=== PATIENT | male | born 1945 | race Caucasian/White ===

== ENCOUNTER 2017-09-23 17:57 | Inpatient (IN) ==
[2017-09-24 06:58] LABS: Basophils # 0.1 K/mcL (0.0-0.2); Basophils % 0.7 %; Eosinophils # 0.4 K/mcL (0.0-0.6); Eosinophils % 3.1 %; Hematocrit 43.8 % (37.5-50.1); Hemoglobin 14.5 g/dL (12.9-16.9); Immature Granulocytes % 1.7 % (0-4); Lymphocytes # 1.6 K/mcL (0.6-4.6); Mean Corpuscular HGB Conc 33.1 g/dL (31.6-35.5); Mean Corpuscular Volume 84.7 fL (83.0-100.0); Mean Platelet Volume 10.9 fL (9.4-12.4); Monocytes % 7.3 %; Neutrophils # 10.1 K/mcL (1.6-8.9); Platelet Count 377 K/mcL (140-400); Red Blood Count 5.17 M/mcL (4.19-5.50); Red Cell Distribution Width 13.2 % (11.5-14.5); Segmented Neutrophils % 75.2 %
[2017-09-24 07:04] LABS: INR 1.2; Prothrombin Time 12.8 Seconds (9.4-12.1)
[2017-09-24 07:06] LABS: Activated Partial Thrombo Time 27.5 Seconds (26.0-36.0)
[2017-09-24 07:13] LABS: Calcium 10.8 mg/dL (8.6-10.8); Potassium 4.2 mEq/L (3.5-4.5)
[2017-09-24] MEDS: Multivit/Ca/Min/Fe/FA 1 TAB TABLET PO SCH (08:43)
[2017-09-24] MEDS: Cholecalciferol (D-3) 1,000 UNIT TABLET PO SCH (08:43)
[2017-09-24] MEDS: Metoprolol XL (24 HR) Succ 50 MG TAB.ER.24H PO SCH (08:43)
[2017-09-24] MEDS: Aspirin Enteric Coated 81 MG Tablet PO SCH (08:43)
[2017-09-24] MEDS: amLODIPine 5 MG TABLET PO SCH (08:43)
[2017-09-24] MEDS: Bicalutamide 50 MG TABLET PO SCH (08:45)
--- NOTE | 2017-09-24 16:42 | Internal Med History&Physical ---
Date of Encounter: 09/24/17 Time of Encounter: 15:10 Assessment and Plan (1) Parietal lobe infarction Current visit: No Status: Acute Continue aspirin and Plavix with PT/OT intervention. (2) Bilateral hydronephrosis Current visit: No Status: Acute Continue nephrostomy tubes. Will monitor renal indices. (3) Atrial fibrillation Current visit: No Status: Chronic Continue aspirin and Plavix and withhold OAC. Qualifiers: Atrial fibrillation type: chronic Qualified Code(s): I48.2 - Chronic atrial fibrillation (4) DVT (deep venous thrombosis) Current visit: No Status: Acute Continue aspirin and Plavix. Qualifiers: DVT location: lower extremity Affected thrombotic vein of extremity: tibial Chronicity: acute Laterality: right Qualified Code(s): I82.441 - Acute embolism and thrombosis of right tibial vein (5) REBEL (acute kidney injury) Current visit: No Status: Acute Chronicity uncertain. Will monitor renal indices. Internal Medicine - H&P: HPI Chief complaint: Stroke, renal failure Admitted From: Hospital to Hospital Transfer Plans for Post Hospital Care: Home History of present illness: Mr. Hunt is a 71 year old male who was transferred to [facility] swing bed after hospitalization at [facility] September 09-September 23. He presented with acute neurologic deficit with vision loss. He was found to have a right parietal infarct and was given aspirin and Plavix. He developed acute renal failure with initial creatinine 11.86 which was increased from 3.69 on 09/01/2017. He reports no previous history of chronic kidney disease. He was found to have obstructive uropathy and had bilateral nephrostomy tubes placed by urology. He had several treatments of hemodialysis but his creatinine improved and he did not have dialysis for several days prior to coming to [facility] swing bed. He developed a right tibial DVT. Consideration for OAC was done but not started because of recent hematuria. He was admitted for rehabilitation therapy prior to returning to independent living. His neurologic history is pertinent for previous CVA April 2016. He denies seizures. Bilateral carotid Doppler studies showed at least 70% stenosis bilaterally but vascular surgery did not feel he was a surgical candidate at this time. Past Med Surg Social Fam HX - Past Medical History Medical history: atrial fibrillation, cancer, GI bleed, hypertension Psychiatric history: no psych history - Past Surgical History Surgical History: other, pacemaker - Social History Smoking Status: Former smoker Smokeless Tobacco Status: No Alcohol use: none Drug use: none Internal Medicine - H&P: Meds Atorvastatin Calcium [Lipitor] 20 mg PO HS 09/09/17 [History] Cholecalciferol (Vitamin D3) [Vitamin D3] 1,000 unit PO DAILY 09/09/17 [History] Metoprolol XL (24 HR) Succ [Toprol Xl] 150 mg PO DAILY 09/09/17 [History] Multivitamin [One Daily Multivitamin] 1 each PO DAILY 09/09/17 [History] Acetaminophen [Tylenol] 650 mg PO Q6HR PRN tablet 09/21/17 [Rx] Bicalutamide [Casodex] 50 mg PO DAILY #30 tablet 09/21/17 [Rx] DiphenhydraMINE [Benadryl] 25 mg PO HS PRN capsule 09/21/17 [Rx] GuaiFENesin ER [Mucinex] 600 mg PO BID PRN tbbp.12hr 09/21/17 [Rx] Lidocaine Patch [Lidoderm 5% patch] 1 each TP DAILY #30 adh..patch 09/21/17 [Rx] Omeprazole [PriLOSEC] 20 mg PO DAILY@0730 #30 capsule. 09/21/17 [Rx] Aspirin Enteric Coated [Aspirin EC] 81 mg PO DAILY #30 tablet. 09/23/17 [Rx] Clopidogrel [Plavix] 75 mg PO DAILY #30 tablet 09/23/17 [Rx] amLODIPine [Norvasc] 10 mg PO DAILY #60 tablet 09/23/17 [Rx] 3 Allergy/AdvReac Type Severity Reaction Status Date / Time No Known Allergies Allergy Verified 09/09/17 11:56 All Systems PM: A 10-system review of systems was performed and is negative for pertinent findings except as documented above in the HPI. Review of systems: Gen.: His weight has decreased approximately 30 pounds in the past year. He reports this was intentional. Cardiovascular: He has had chronic atrial fibrillation for several years. He had a pacemaker placed over 15 years ago but is uncertain of the qualifying diagnosis. He has history of hypertension but denies [place] or heart failure, previous DVT or pulmonary emboli. Respiratory: He smoked age [age] a total of approximately 20 years. He denies chronic lung disease and does not use home oxygen GI: Denies disorders of his liver gallbladder exceeding pancreas : He denies past chronic kidney disease. He had TUR approximately 2010. A small amount of prostate cancer was found in the removed tissue. Abdominal/ pelvic CT scan done 09/09/2017 showed a masslike density along the base of the bladder possibly contributing to obstructive uropathy with bilateral moderate hydronephrosis. Bilateral nephrostomy tubes were placed. Neurologic: As per history of present illness Endocrine: He was told he had borderline diabetes prior to weight loss. He has hyperlipidemia but denies thyroid disease Hematology/oncology: He had prostate CA as per above. He denies anemia or other malignancies Psychiatric: He denies anxiety depression or other mental health issues Musk skeletal: He has had pain in his neck and feet. He denies gout other bone joint or muscle disorders. - Constitutional Vitals: Temp Pulse Resp BP Pulse Ox 98.4 F 67 16 158/92 94 09/24/17 06:35 09/24/17 09:36 09/24/17 09:36 09/24/17 09:36 09/24/17 09:36 Exam: Gen.: He is a well-developed well-nourished male who appears in no acute distress at present time HEENT: Head is atraumatic and normocephalic. Eyes: EOMI. There is no scleral icterus. Mouth: Mucosa is moist. Neck: Supple and nontender. There is no thyromegaly or adenopathy noted. Heart: Regular without murmurs gallops or ectopics (pacer) Lungs: No wheezes or crackles are heard. Back: Bilateral nephrostomy tubes are in place with adequate drainage. Abdomen: Soft and nontender. No masses or guarding noted. Extremities: There is no cyanosis edema or clubbing noted. Dorsalis pedis and posttibial pulses are trace palpable bilaterally. He has minimal DJD changes of his hands. Neurologic: Mental status: He is talkative and seems to be a fairly good historian. Cranial nerves: There is slight flattening of the left nasolabial fold. Forehead wrinkles bilaterally. Tongue protrudes midline. EOMI. Motor: There is no pronator drift. Rapid finger movements are symmetric. Cerebellar: Finger to nose is intact bilaterally. Skin: Warm and dry Internal Med - H&P Results - Labs CBC & Chem 7: 09/24/17 06:38 09/24/17 06:32 Labs: Short CBC 09/24/17 Range/Units 06:38 WBC 13.4 H (4.3-11.1) K/mcL Hgb 14.5 (12.9-16.9) g/dL Hct 43.8 (37.5-50.1) % Plt Count 377 (140-400) K/mcL Neutrophils # 10.1 H (1.6-8.9) K/mcL BMP 09/24/17 06:32 Sodium 142 Potassium 4.2 Chloride 105 Carbon Dioxide 25 BUN 57 H Creatinine 4.16 H Glucose 122 H Calcium 10.8
[2017-09-25] MEDS: Aspirin Enteric Coated 81 MG Tablet PO SCH (08:24)
[2017-09-25] MEDS: Bicalutamide 50 MG TABLET PO SCH (08:25)
[2017-09-25] MEDS: Multivit/Ca/Min/Fe/FA 1 TAB TABLET PO SCH (08:25)
[2017-09-25] MEDS: Cholecalciferol (D-3) 1,000 UNIT TABLET PO SCH (08:25)
[2017-09-25] MEDS: amLODIPine 5 MG TABLET PO SCH (08:25)
[2017-09-25] MEDS: Metoprolol XL (24 HR) Succ 50 MG TAB.ER.24H PO SCH (08:25)
--- NOTE | 2017-09-25 15:15 | Internal Med Progress Note ---
Date of Encounter: 09/25/17 Time of Encounter: 15:05 - Assessment and plan (1) Parietal lobe infarction Current Visit: No Status: Acute Assessment and plan: September 25. Continue aspirin and Plavix with therapy intervention. (2) Bilateral hydronephrosis Current Visit: No Status: Acute Assessment and plan: September 25. Continue nephrostomy tube drainage. (3) Atrial fibrillation Current Visit: No Status: Chronic Assessment and plan: September 25. Continue aspirin and Plavix. Qualifiers: Atrial fibrillation type: chronic Qualified Code(s): I48.2 - Chronic atrial fibrillation (4) DVT (deep venous thrombosis) Current Visit: No Status: Acute Assessment and plan: September 25. Continue aspirin and Plavix Qualifiers: DVT location: lower extremity Affected thrombotic vein of extremity: tibial Chronicity: acute Laterality: right Qualified Code(s): I82.441 - Acute embolism and thrombosis of right tibial vein (5) REBEL (acute kidney injury) Current Visit: No Status: Acute Assessment and plan: September 25. Chronicity uncertain. Will check labs in a.m. - Subjective Interval history: September 25. He has no new complaints. - Constitutional Vitals: Temp Pulse Resp BP Pulse Ox 97.7 F 61 18 150/81 98 09/25/17 06:37 09/25/17 06:37 09/25/17 06:37 09/25/17 06:37 09/25/17 06:37 Exam: He is resting comfortably in bed. He is conversational and generally logical in speech. I reviewed his medications and lab results. Internal Medicine: Result - Labs CBC & Chem 7: 09/24/17 06:38 09/24/17 06:32 - ABG Interpretation ABG results: PT/INR, D-dimer PT 12.8 Seconds (9.4-12.1) H 09/24/17 06:32 Consult Discharge Plan - Plan Referrals: Charisma Jensen DO [Primary Care Provider] - 1 week Christina Johns MD [Partnered Physician] - 10/14/17 12:45 pm (In [place] at the [place].)
[2017-09-26 05:22] LABS: Basophils # 0.1 K/mcL (0.0-0.2); Basophils % 0.7 %; Eosinophils # 0.3 K/mcL (0.0-0.6); Eosinophils % 2.5 %; Hematocrit 42.5 % (37.5-50.1); Hemoglobin 14.1 g/dL (12.9-16.9); Immature Granulocytes % 1.4 % (0-4); Lymphocytes # 2.1 K/mcL (0.6-4.6); Lymphocytes % 15.6 %; Mean Corpuscular HGB Conc 33.2 g/dL (31.6-35.5); Mean Corpuscular Hemoglobin 28.2 pg (28.0-33.3); Mean Platelet Volume 11.3 fL (9.4-12.4); Monocytes % 7.1 %; Neutrophils # 9.7 K/mcL (1.6-8.9); Platelet Count 431 K/mcL (140-400); Red Cell Distribution Width 13.2 % (11.5-14.5); Segmented Neutrophils % 72.7 %
[2017-09-26 05:29] LABS: Monocytes # 0.9 K/mcL (0.0-1.3)
[2017-09-26 05:40] LABS: Albumin 3.2 g/dL (3.5-5.0); Albumin/Globulin Ratio 0.7 (1.1-2.2); Bilirubin,Total 0.7 mg/dL (0.2-1.2); Calcium 10.4 mg/dL (8.6-10.8); Globulin 4.6 g/dL (2.4-3.5); Potassium 3.8 mEq/L (3.5-4.5); Total Protein 7.8 g/dL (6.0-8.3)
[2017-09-26] MEDS: amLODIPine 5 MG TABLET PO SCH (10:17)
[2017-09-26] MEDS: Multivit/Ca/Min/Fe/FA 1 TAB TABLET PO SCH (10:17)
[2017-09-26] MEDS: Metoprolol XL (24 HR) Succ 50 MG TAB.ER.24H PO SCH (10:17)
[2017-09-26] MEDS: Bicalutamide 50 MG TABLET PO SCH (10:17)
[2017-09-26] MEDS: Aspirin Enteric Coated 81 MG Tablet PO SCH (10:17)
[2017-09-26] MEDS: Cholecalciferol (D-3) 1,000 UNIT TABLET PO SCH (10:17)
[2017-09-27] MEDS: Multivit/Ca/Min/Fe/FA 1 TAB TABLET PO SCH (11:06)
[2017-09-27] MEDS: amLODIPine 5 MG TABLET PO SCH (11:06)
[2017-09-27] MEDS: Acetaminophen 325 MG TABLET PO PRN (11:06)
[2017-09-27] MEDS: Cholecalciferol (D-3) 1,000 UNIT TABLET PO SCH (11:06)
[2017-09-27] MEDS: Aspirin Enteric Coated 81 MG Tablet PO SCH (11:07)
[2017-09-27] MEDS: Bicalutamide 50 MG TABLET PO SCH (11:07)
[2017-09-27] MEDS: Metoprolol XL (24 HR) Succ 50 MG TAB.ER.24H PO SCH (11:07)
--- NOTE | 2017-09-27 15:41 | Internal Med Progress Note ---
Date of Encounter: 09/27/17 Time of Encounter: 15:35 - Assessment and plan (1) Parietal lobe infarction Current Visit: No Status: Acute Assessment and plan: September 25. Continue aspirin and Plavix with therapy intervention. (2) Bilateral hydronephrosis Current Visit: No Status: Acute Assessment and plan: September 25. Continue nephrostomy tube drainage. (3) Atrial fibrillation Current Visit: No Status: Chronic Assessment and plan: September 25. Continue aspirin and Plavix. Qualifiers: Atrial fibrillation type: chronic Qualified Code(s): I48.2 - Chronic atrial fibrillation (4) DVT (deep venous thrombosis) Current Visit: No Status: Acute Assessment and plan: September 25. Continue aspirin and Plavix Qualifiers: DVT location: lower extremity Affected thrombotic vein of extremity: tibial Chronicity: acute Laterality: right Qualified Code(s): I82.441 - Acute embolism and thrombosis of right tibial vein (5) REBEL (acute kidney injury) Current Visit: No Status: Acute Assessment and plan: September 25. Chronicity uncertain. Will check labs in a.m. September 27. Creatinine decreased to 3.79 yesterday with estimated GFR 16. We will continue to monitor renal indices periodically. - Subjective Interval history: September 25. He has no new complaints. September 27. He has no new complaints - Constitutional Vitals: Temp Pulse Resp BP Pulse Ox 98.3 F 62 18 129/70 97 09/27/17 06:56 09/27/17 06:56 09/27/17 06:56 09/27/17 06:56 09/27/17 06:56 Exam: He is resting comfortably in bed and appears in no acute distress. His affect is bright and cheerful. I reviewed his medications and lab results. Internal Medicine: Result - Labs CBC & Chem 7: 09/26/17 04:40 09/26/17 04:40 - ABG Interpretation ABG results: PT/INR, D-dimer PT 12.8 Seconds (9.4-12.1) H 09/24/17 06:32 Consult Discharge Plan - Plan Referrals: Charisma Jensen DO [Primary Care Provider] - 1 week Christina Johns MD [Partnered Physician] - 10/14/17 12:45 pm (In [place] at the [place].)
[2017-09-28] MEDS: Bicalutamide 50 MG TABLET PO SCH (08:16)
[2017-09-28] MEDS: Cholecalciferol (D-3) 1,000 UNIT TABLET PO SCH (08:16)
[2017-09-28] MEDS: Multivit/Ca/Min/Fe/FA 1 TAB TABLET PO SCH (08:17)
[2017-09-28] MEDS: Aspirin Enteric Coated 81 MG Tablet PO SCH (08:17)
[2017-09-28] MEDS: amLODIPine 5 MG TABLET PO SCH (08:17)
[2017-09-28] MEDS: Metoprolol XL (24 HR) Succ 50 MG TAB.ER.24H PO SCH (08:18)
[2017-09-28 11:37] LABS: Basophils # 0.1 K/mcL (0.0-0.2); Basophils % 0.7 %; Eosinophils # 0.3 K/mcL (0.0-0.6); Eosinophils % 2.1 %; Hematocrit 43.8 % (37.5-50.1); Hemoglobin 14.8 g/dL (12.9-16.9); Immature Granulocytes % 1.2 % (0-4); Lymphocytes # 1.5 K/mcL (0.6-4.6); Lymphocytes % 11.4 %; Mean Corpuscular HGB Conc 33.8 g/dL (31.6-35.5); Mean Corpuscular Hemoglobin 28.2 pg (28.0-33.3); Mean Corpuscular Volume 83.6 fL (83.0-100.0); Mean Platelet Volume 11.2 fL (9.4-12.4); Monocytes % 7.6 %; Neutrophils # 9.8 K/mcL (1.6-8.9); Platelet Count 485 K/mcL (140-400); Red Blood Count 5.24 M/mcL (4.19-5.50); Red Cell Distribution Width 13.2 % (11.5-14.5)
[2017-09-28 11:41] LABS: Albumin 3.5 g/dL (3.5-5.0); Albumin/Globulin Ratio 0.8 (1.1-2.2); Bilirubin,Total 0.7 mg/dL (0.2-1.2); Calcium 10.4 mg/dL (8.6-10.8); Globulin 4.5 g/dL (2.4-3.5)
[2017-09-29] MEDS: amLODIPine 5 MG TABLET PO SCH (08:42)
[2017-09-29] MEDS: Cholecalciferol (D-3) 1,000 UNIT TABLET PO SCH (08:43)
[2017-09-29] MEDS: Multivit/Ca/Min/Fe/FA 1 TAB TABLET PO SCH (08:43)
[2017-09-29] MEDS: Aspirin Enteric Coated 81 MG Tablet PO SCH (08:43)
[2017-09-29] MEDS: Metoprolol XL (24 HR) Succ 50 MG TAB.ER.24H PO SCH (08:43)
--- NOTE | 2017-09-29 12:46 | Internal Med Progress Note ---
Date of Encounter: 09/29/17 Time of Encounter: 12:35 - Assessment and plan (1) Parietal lobe infarction Current Visit: No Status: Acute Assessment and plan: September 25. Continue aspirin and Plavix with therapy intervention. (2) Bilateral hydronephrosis Current Visit: No Status: Acute Assessment and plan: September 25. Continue nephrostomy tube drainage. (3) Atrial fibrillation Current Visit: No Status: Chronic Assessment and plan: September 25. Continue aspirin and Plavix. Qualifiers: Atrial fibrillation type: chronic Qualified Code(s): I48.2 - Chronic atrial fibrillation (4) DVT (deep venous thrombosis) Current Visit: No Status: Acute Assessment and plan: September 25. Continue aspirin and Plavix Qualifiers: DVT location: lower extremity Affected thrombotic vein of extremity: tibial Chronicity: acute Laterality: right Qualified Code(s): I82.441 - Acute embolism and thrombosis of right tibial vein (5) REBEL (acute kidney injury) Current Visit: No Status: Acute Assessment and plan: September 25. Chronicity uncertain. Will check labs in a.m. September 27. Creatinine decreased to 3.79 yesterday with estimated GFR 16. We will continue to monitor renal indices periodically. September 29. Creatinine decreased further to 3.46 on 09/28/2017. Continue present management (6) Pelvic mass Current Visit: Yes Status: Acute Assessment and plan: September 29. Urology is following. - Subjective Interval history: September 25. He has no new complaints. September 27. He has no new complaints September 29. He has no new complaints - Constitutional Vitals: Temp Pulse Resp BP Pulse Ox 98.0 F 76 16 128/76 99 09/29/17 07:14 09/29/17 07:14 09/29/17 07:14 09/29/17 07:14 09/29/17 07:14 Exam: He is resting comfortably in bed and appears in no acute distress. His affect is bright and cheerful. He is appropriate in conversation. I reviewed his medications and lab results. Internal Medicine: Result - Labs CBC & Chem 7: 09/28/17 11:16 09/28/17 11:16 - ABG Interpretation ABG results: PT/INR, D-dimer PT 12.8 Seconds (9.4-12.1) H 09/24/17 06:32 Consult Discharge Plan - Plan Referrals: Kirill Borrero MD [Partnered Physician] - 10/16/17 9:15 am (f/u Urology - [place] location) Gene Anthony MD [Partnered Physician] - 10/07/17 3:40 pm (f/u Vascular Sx ) Lux Dotson MD [Partnered Physician] - 11/19/17 10:00 am (f/u nephrology - 1st available) Charisma Jensen DO [Primary Care Provider] - 1 week (will make @ D/C) Christina Johns MD [Partnered Physician] - 10/14/17 12:45 pm (Neurology -In [place] at the [place].)
[2017-09-29] MEDS: Bicalutamide 50 MG TABLET PO SCH (18:21)
[2017-09-30] MEDS: Acetaminophen 325 MG TABLET PO PRN ×2 (07:43→21:16)
[2017-09-30] MEDS: Aspirin Enteric Coated 81 MG Tablet PO SCH (09:40)
[2017-09-30] MEDS: amLODIPine 5 MG TABLET PO SCH (09:41)
[2017-09-30] MEDS: Bicalutamide 50 MG TABLET PO SCH (09:41)
[2017-09-30] MEDS: Metoprolol XL (24 HR) Succ 50 MG TAB.ER.24H PO SCH (09:42)
[2017-09-30] MEDS: Multivit/Ca/Min/Fe/FA 1 TAB TABLET PO SCH (09:42)
[2017-09-30] MEDS: Cholecalciferol (D-3) 1,000 UNIT TABLET PO SCH (09:43)
[2017-10-01] MEDS: Acetaminophen 325 MG TABLET PO PRN ×2 (07:02→20:23)
[2017-10-01] MEDS: Bicalutamide 50 MG TABLET PO SCH (09:04)
[2017-10-01] MEDS: Metoprolol XL (24 HR) Succ 50 MG TAB.ER.24H PO SCH (09:05)
[2017-10-01] MEDS: amLODIPine 5 MG TABLET PO SCH (09:05)
[2017-10-01] MEDS: Cholecalciferol (D-3) 1,000 UNIT TABLET PO SCH (09:05)
[2017-10-01] MEDS: Aspirin Enteric Coated 81 MG Tablet PO SCH (09:05)
[2017-10-01] MEDS: Multivit/Ca/Min/Fe/FA 1 TAB TABLET PO SCH (09:06)
[2017-10-02 06:37] VITALS: BP 119/69
[2017-10-02] MEDS: amLODIPine 5 MG TABLET PO SCH (09:03)
[2017-10-02] MEDS: Aspirin Enteric Coated 81 MG Tablet PO SCH (09:03)
[2017-10-02] MEDS: Metoprolol XL (24 HR) Succ 50 MG TAB.ER.24H PO SCH (09:03)
[2017-10-02] MEDS: Cholecalciferol (D-3) 1,000 UNIT TABLET PO SCH (09:03)
[2017-10-02] MEDS: Multivit/Ca/Min/Fe/FA 1 TAB TABLET PO SCH (09:04)
[2017-10-02] MEDS: Bicalutamide 50 MG TABLET PO SCH (09:04)
--- NOTE | 2017-10-02 12:54 | Internal Med Progress Note ---
Date of Encounter: 10/02/17 Time of Encounter: 12:25 - Assessment and plan (1) Parietal lobe infarction Current Visit: No Status: Acute Assessment and plan: September 25. Continue aspirin and Plavix with therapy intervention. (2) Bilateral hydronephrosis Current Visit: No Status: Acute Assessment and plan: September 25. Continue nephrostomy tube drainage. (3) Atrial fibrillation Current Visit: No Status: Chronic Assessment and plan: September 25. Continue aspirin and Plavix. Qualifiers: Atrial fibrillation type: chronic Qualified Code(s): I48.2 - Chronic atrial fibrillation (4) DVT (deep venous thrombosis) Current Visit: No Status: Acute Assessment and plan: September 25. Continue aspirin and Plavix Qualifiers: DVT location: lower extremity Affected thrombotic vein of extremity: tibial Chronicity: acute Laterality: right Qualified Code(s): I82.441 - Acute embolism and thrombosis of right tibial vein (5) REBEL (acute kidney injury) Current Visit: No Status: Acute Assessment and plan: September 25. Chronicity uncertain. Will check labs in a.m. September 27. Creatinine decreased to 3.79 yesterday with estimated GFR . We will continue to monitor renal indices periodically. September 29. Creatinine decreased further to 3.46 on 09/28/2017. Continue present management October 02. We will recheck labs in a.m. (6) Pelvic mass Current Visit: Yes Status: Acute Assessment and plan: September 29. Urology is following. - Subjective Interval history: September 25. He has no new complaints. September 27. He has no new complaints September 29. He has no new complaints October 02. He has no new complaints and feels well. - Constitutional Vitals: Temp Pulse Resp BP Pulse Ox 98.4 F 64 18 119/69 100 10/02/17 06:30 10/02/17 06:30 10/02/17 06:30 10/02/17 06:30 10/02/17 06:30 Exam: He is resting comfortably in bed and appears in no acute distress. He is appropriate in conversation. I reviewed his medications and lab results. Internal Medicine: Result - Labs CBC & Chem 7: 09/28/17 11:16 09/28/17 11:16 - ABG Interpretation ABG results: PT/INR, D-dimer PT 12.8 Seconds (9.4-12.1) H 09/24/17 06:32 Consult Discharge Plan - Plan Referrals: Kirill Borrero MD [Partnered Physician] - 10/30/17 10:15 am (f/u Urology - [place] location) Gene Anthony MD [Partnered Physician] - 10/07/17 3:40 pm (f/u Vascular Sx ) Lux Dotson MD [Partnered Physician] - 11/19/17 10:00 am (f/u nephrology - 1st available) Charisma Jensen DO [Primary Care Provider] - 1 week (will make @ D/C) Christina Johns MD [Partnered Physician] - 10/14/17 12:45 pm (Neurology -In [place] at [facility].)
--- NOTE | 2017-10-02 14:34 | Discharge Summary ---
Date of Encounter: 10/02/17 Time of Encounter: 14:29 - Discharge Diagnosis (1) Parietal lobe infarction Priority: Primary Status: Acute (2) Bilateral hydronephrosis Priority: Secondary Status: Acute (3) Atrial fibrillation Priority: Secondary Status: Chronic Qualifiers: Atrial fibrillation type: chronic Qualified Code(s): I48.2 - Chronic atrial fibrillation (4) DVT (deep venous thrombosis) Priority: Secondary Status: Acute Qualifiers: DVT location: lower extremity Affected thrombotic vein of extremity: tibial Chronicity: acute Laterality: right Qualified Code(s): I82.441 - Acute embolism and thrombosis of right tibial vein (5) REBEL (acute kidney injury) Priority: Secondary Status: Acute (6) Pelvic mass Priority: Secondary Status: Acute - Discharge Medications Home Medications: Atorvastatin Calcium [Lipitor] 20 mg PO HS 09/09/17 [History] Cholecalciferol (Vitamin D3) [Vitamin D3] 1,000 unit PO DAILY 09/09/17 [History] Metoprolol XL (24 HR) Succ [Toprol Xl] 150 mg PO DAILY 09/09/17 [History] Multivitamin [One Daily Multivitamin] 1 each PO DAILY 09/09/17 [History] Acetaminophen [Tylenol] 650 mg PO Q6HR PRN tablet 09/21/17 [Rx] Bicalutamide [Casodex] 50 mg PO DAILY #30 tablet 09/21/17 [Rx] DiphenhydraMINE [Benadryl] 25 mg PO HS PRN capsule 09/21/17 [Rx] GuaiFENesin ER [Mucinex] 600 mg PO BID PRN tbbp.12hr 09/21/17 [Rx] Lidocaine Patch [Lidoderm 5% patch] 1 each TP DAILY #30 adh..patch 09/21/17 [Rx] Omeprazole [PriLOSEC] 20 mg PO DAILY@0730 #30 capsule. 09/21/17 [Rx] Aspirin Enteric Coated [Aspirin EC] 81 mg PO DAILY #30 tablet. 09/23/17 [Rx] Clopidogrel [Plavix] 75 mg PO DAILY #30 tablet 09/23/17 [Rx] amLODIPine [Norvasc] 10 mg PO DAILY #60 tablet 09/23/17 [Rx] Allergies/Adverse Reactions: 3 Allergy/AdvReac Type Severity Reaction Status Date / Time No Known Allergies Allergy Verified 09/09/17 11:56 Procedures/tests Complete & Pending: Procedures Performed prior 72 hours Category Date Time Status Venous Ultrasound [EV venous imaging LE RT] Routine Y 10/05/17 06:00 Ordered Date of admission: 09/23/17 19:18 Primary care physician: Charisma Jensen Consults: 09/23/17 18:53 Consult to Occupational Therapy [CONS] Routine Comment: implement, plan, and evaluate POC Reason for Consult: implement, plan, and evaluate POC Consult to Physical Therapy [CONS] Routine Comment: implement, plan, and evaluate POC Reason for Consult: implement, plan, and evaluate POC Consult to Store Associate [CONS] Routine Reason for SW Consult: d/c planning 09/25/17 10:38 Consult to Speech Therapy [CONS] Routine Comment: Evaluate, develop and implement POC Reason for Consult: cva - eval cognition Call Completed: No - Patient Status Disposition: Home Health Service Functional capacity at discharge: uses cane/walker Overall status at discharge: patient is progressing back to baseline - Discharge Instructions Follow Up With: Kirill Borrero MD [Partnered Physician] - 10/30/17 10:15 am (f/u Urology - [place] location) Gene Anthony MD [Partnered Physician] - 10/07/17 3:40 pm (f/u Vascular Sx ) Lux Dotson MD [Partnered Physician] - 11/19/17 10:00 am (f/u nephrology - 1st available) Charisma Jensen DO [Primary Care Provider] - 1 week (will make @ D/C) Christina Johns MD [Partnered Physician] - 10/14/17 12:45 pm (Neurology -In [place] at the [place].) - Diet and Activity Activity: as per physical therapy Diet: advance to your usual diet Hospital course: Mr. Hunt is a 71 year old male who was transferred to [facility] swing bed after hospitalization at [facility] September 09-September 23. He presented with acute neurologic deficit with vision loss. He was found to have a right parietal infarct and was given aspirin and Plavix. He developed acute renal failure with initial creatinine 11.86 which was increased from 3.69 on 09/01/2017. He reports no previous history of chronic kidney disease. He was found to have obstructive uropathy and had bilateral nephrostomy tubes placed by urology. He had several treatments of hemodialysis but his creatinine improved and he did not have dialysis for several days prior to coming to [facility] swing bed. He developed a right tibial DVT. Consideration for OAC was done but not started because of recent hematuria. He was admitted for rehabilitation therapy prior to returning to independent living. Initial orders were written by the discharging physicians at [facility]. I saw him on September 24 and performed the swing bed history and physical. He continued on aspirin and Plavix. His renal function further improvement with creatinine decreasing to 3.46 on 09/28/2017. Leukocytosis improved with WBC 12.7 on 2016. Physical therapy and occupational therapy evaluations and ongoing interventions were done. He made satisfactory progress in therapy. Discharge date was initially set for October 01. Family appealed the discharge notice but insurance denied the appeal. He will be discharged home today October 02 and follow with his PCP within one week. Home health services will be ordered. - Time Spent with Patient Total time spent providing and/or coordinating discharge services: - Constitutional Vitals: Temp Pulse Resp BP Pulse Ox 98.4 F 64 18 119/69 100 10/02/17 06:30 10/02/17 06:30 10/02/17 06:30 10/02/17 06:30 10/02/17 06:30
--- NOTE | 2017-10-02 14:39 | Physician Discharge Referral ---
Home Health/Hosp Referral Info Transfer to: Home Health Attending Provider: Jose Provider in Charge Post Discharge: PCP (Charisma Jensen M.D.) - Diagnosis (1) Parietal lobe infarction Priority: Primary Status: Acute (2) Bilateral hydronephrosis Priority: Secondary Status: Acute (3) Atrial fibrillation Priority: Secondary Status: Chronic (4) DVT (deep venous thrombosis) Priority: Secondary Status: Acute (5) REBEL (acute kidney injury) Priority: Secondary Status: Acute (6) Pelvic mass Priority: Secondary Status: Acute - Respiratory Orders Smoking Cessation: Smoking cessation has been advised. For more information, call the [place] Tobacco Quit Line at 4-063-DBHR-NOW. - Diet/Nutrition Diet/Nutrition Orders: Regular - Activity Activity Orders: Walker - Services Needed Following services are medically necessary services: Nursing, Home Health Aide, Physical Therapy, Occupational Therapy - Transfer Medications Home Medications: Atorvastatin Calcium [Lipitor] 20 mg PO HS 09/09/17 [History] Cholecalciferol (Vitamin D3) [Vitamin D3] 1,000 unit PO DAILY 09/09/17 [History] Metoprolol XL (24 HR) Succ [Toprol Xl] 150 mg PO DAILY 09/09/17 [History] Multivitamin [One Daily Multivitamin] 1 each PO DAILY 09/09/17 [History] Acetaminophen [Tylenol] 650 mg PO Q6HR PRN tablet 09/21/17 [Rx] Bicalutamide [Casodex] 50 mg PO DAILY #30 tablet 09/21/17 [Rx] DiphenhydraMINE [Benadryl] 25 mg PO HS PRN capsule 09/21/17 [Rx] GuaiFENesin ER [Mucinex] 600 mg PO BID PRN tbbp.12hr 09/21/17 [Rx] Lidocaine Patch [Lidoderm 5% patch] 1 each TP DAILY #30 adh..patch 09/21/17 [Rx] Omeprazole [PriLOSEC] 20 mg PO DAILY@0730 #30 capsule. 09/21/17 [Rx] Aspirin Enteric Coated [Aspirin EC] 81 mg PO DAILY #30 tablet. 09/23/17 [Rx] Clopidogrel [Plavix] 75 mg PO DAILY #30 tablet 09/23/17 [Rx] amLODIPine [Norvasc] 10 mg PO DAILY #60 tablet 09/23/17 [Rx] Allergies/Adverse Reactions: 3 Allergy/AdvReac Type Severity Reaction Status Date / Time No Known Allergies Allergy Verified 09/09/17 11:56 Certification: Further, I certify that my clinical findings support that this patient is homebound (i.e. absences from home require considerable and taxing effort and are for medical reasons or restorationism services or infrequently or short duration when for other reasons) because: Homebound Reason: Leaving home requires considerable and taxing effort due to condition (Stroke, bilateral nephrostomy tubes) Attestation: My signature below is to certify that this patient is under my care and that I, or nurse practitioner, or a physician's customer assistant working with me, has a face-to -face encounter with this patient.
[2017-10-02] MEDS: Acetaminophen 325 MG TABLET PO PRN (16:11)
== END 2017-10-02 17:31 | disposition home health service (06) | DRG 945 ==
LOC: INPPIK 19:18
PROVIDERS: ADMIT Internal Medicine; ATTEND Internal Medicine